=== PATIENT | male | born 1990 | race Caucasian/White ===

== ENCOUNTER 2019-12-23 00:43 | Emergency (ER) | payer OTHER ==
[~2019-12-23] VITALS: Ht 177.8 cm; Wt 61.5 kg
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
[2019-12-23] MEDS ORDERED: OXYcodone/APAP 5/325MG TABLET ONE (02:44)
[2019-12-23] MEDS ORDERED: OXYcodone/APAP 5/325MG TABLET PO ONE (03:00)
[2019-12-23 03:19] VITALS: BP 115/71
== END 2019-12-23 03:22 | disposition home or self-care (01) ==
LOC: ED 01:45
DX: S22.22XA Fracture of body of sternum, initial encounter for closed fracture (principal); V49.59XA Passenger injured in collision with other motor vehicles in traffic accident, initial encounter; Y93.89 Activity, other specified; Y92.488 Other paved roadways as the place of occurrence of the external cause; Y99.8 Other external cause status
CPT/HCPCS: 71046; 93005; 99283

== ENCOUNTER 2019-12-30 11:12 | Emergency (ER) | payer OTHER ==
[~2019-12-30] VITALS: Ht 177.8 cm; Wt 58.7 kg
[2019-12-30 11:31] VITALS: BP 142/79
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
--- NOTE | 2019-12-30 12:28 | NUR ---
Patient/Caregiver given discharge instructions and they have confirmed that they understand the instructions. Patient ambulatory with steady gait.
== END 2019-12-30 12:40 | disposition home or self-care (01) ==
LOC: ED 12:36
DX: S22.22XD Fracture of body of sternum, subsequent encounter for fracture with routine healing (principal); X58.XXXA Exposure to other specified factors, initial encounter; F17.200 Nicotine dependence, unspecified, uncomplicated
CPT/HCPCS: 99282